=== PATIENT | male | born 1995 | race Caucasian/White ===

== ENCOUNTER 2020-11-25 23:54 | Emergency (ER) | payer OTHER, SELFPAY ==
--- NOTE | 2020-11-26 | ECG_ITS ---
Test Reason : EPIGASTRIC PN Blood Pressure : / mmHG Vent. Rate : 071 BPM Atrial Rate : 071 BPM P-R Int : 130 ms QRS Dur : 088 ms QT Int : 398 ms P-R-T Axes : 037 011 038 degrees QTc Int : 432 ms Normal sinus rhythm with sinus arrhythmia Normal ECG No previous ECGs available Referred By: Laurence Jiang Electronically Signed By:ALEKSANDR LINK
[2020-11-26 00:03] VITALS: BP 114/72; PULSE 69; RESP 16; TEMP 36.8; O2SAT 98; BMI 31.6
[2020-11-26 00:24] LABS: MANUAL DIFF FLAG NO
--- NOTE | 2020-11-26 00:24 | PC.NURSE ---
IV established, labs and UA obtained and sent. Pt resting in POC, awaiting primary MD carbajal.
[2020-11-26 00:30] LABS: Basophils Percent Auto 0.5 % (0-2); Eosinophils Absolute Auto 0.2 X10*3/uL (0.0-0.4); Eosinophils Percent Auto 2.7 % (0-4); Hematocrit 42.6 % (42-52); Hemoglobin 14.4 g/dl (14.0-18.0); Imm Gran Abs Auto 0.01 X10*3/uL (0.00-0.03); Imm Gran Pct Auto 0.1 % (0.0-0.4); Lymphocytes Absolute Auto 3.8 X10*3/uL (1.2-4.9); Mean Corpuscular HGB Conc 33.8 g/dl (31.0-36.0); Mean Corpuscular Hemoglobin 29.3 pg (27.0-33.0); Mean Corpuscular Volume 86.8 fL (80-98); Mean Platelet Volume 10.5 fL (9.4-12.4); Monocytes Absolute Auto 0.7 X10*3/uL (0.1-1.2); Monocytes Percent Auto 7.7 % (2-11); Neutrophils Absolute Auto 3.9 X10*3/uL (2.0-8.3); Platelet Count 245 X10*3/uL (160-400); Red Blood Count 4.91 X10*6/uL (4.60-5.80); Red Cell Distribution Width 13.1 % (11.0-16.0); White Blood Count 8.6 X10*3/uL (4.8-10.8)
[2020-11-26 00:31] LABS: Glucose Urine UA NEG (NEG); Leukocyte Esterase Urine NEG (NEG); Nitrite Urine NEG (NEG); Specific Gravity - Urine 1.015 (1.005-1.025); Urine Blood NEG (NEG); Urine Ketones NEG (NEG); Urine Protein TRACE MG/DL (NEG-TRACE)
[2020-11-26 00:32] LABS: Appearance Urine CLEAR; Color Urine YELLOW
--- NOTE | 2020-11-26 00:41 | PC.NURSE ---
at bedside for primary eval.
[2020-11-26 00:50] LABS: Alanine Aminotransferase 39 U/L (0-40); Albumin Level 4.4 g/dL (3.5-5.0); Alkaline Phosphatase 74 U/L (39-117); Anion Gap 11 (12-20); Aspartate Amino Transferase 30 U/L (5-37); Bilirubin Total 0.5 mg/dL (0.0-1.0); Blood Urea Nitrogen 14 mg/dL (9-16); Calcium 9.4 mg/dL (8.4-10.2); Carbon Dioxide 26 mmol/L (22-29); Chloride 108 mmol/L (96-108); Creatinine Clr Calc Pharmacy 139.3; Estimated Glomerular Filt Rate > 60; Glucose Random 98 mg/dL (60-115); Lipase 16 U/L (8-78); Potassium 4.1 mmol/L (3.3-5.1); Sodium 141 mmol/L (135-145); Total Protein 7.5 g/dL (6.5-8.0)
--- NOTE | 2020-11-26 00:50 | ED.ABDPAIN ---
HPI - Abdominal Pain General Chief Complaint: Abdominal Pain Stated Complaint: Abd pain Time Seen by Provider: 11/26/20 00:04 Source: patient Mode of arrival: ambulatory History of Present Illness HPI narrative: 25-year-old male presents with 1 week of noting that when he goes to bed at night after 2nd shift he experiences significant epigastric discomfort when lying flat on his back and only improves with sitting up. He states that at times he has to sleep sitting upright. This is not been associated with fever, chills, shortness of breath, nausea, vomiting, diarrhea. Patient is otherwise without significant past medical history. Related Data Previous Rx's Medication Instructions Recorded ibuprofen 600 mg tablet 600 mg PO Q8H 7 Days #21 tab 11/26/20 omeprazole 40 mg capsule,delayed 40 mg PO DAILY 30 Days #30 cap 11/26/20 release Allergies Allergy/AdvReac Type Severity Reaction Status Date / Time No Known Allergies Allergy Unverified 11/26/20 00:10 [No Known Allergies*] Review of Systems Review of Systems Pertinent positives and negatives as stated in HPI 10 point review of systems is otherwise negative. Physical Exam Vital Signs: Vital Signs: Last Vital Signs Temp 98.3 F 11/26/20 00:03 Pulse 59 11/26/20 03:27 Resp 14 11/26/20 03:27 BP 112/70 11/26/20 03:27 Pulse Ox 98 11/26/20 03:27 Body Mass Index 31.6 VITAL SIGNS: Reviewed. GENERAL: Well developed, well nourished, in no acute distress. HEAD: Normocephalic/atraumatic EYES: PERRLA, EOMI EARS: Ext canals without abnormality OROPHARYNX: no oral lesions noted, posterior pharynx clear LUNGS: Normal breath sounds. No adventitious sounds or accessory muscle use. SpO2<98> CARDIOVASCULAR: Regular rate and rhythm without noted murmurs, no JVD or lower extremity edema. ABDOMEN: Soft, non-tender, non-distended with bowel sounds. MUSCULOSKELETAL: No tenderness, deformities, or effusions noted on gross inspection. EXTREMITIES: No cyanosis, clubbing or edema. SKIN: Inspection of the skin reveals no rashes NEUROLOGIC: Alert and oriented x 4. Strength and sensation to light touch were grossly intact x 4. Course Course Course Narrative: 25-year-old male with history and clinical presentation suggestive of possible pericarditis. Review of all investigations without acute findings other than detectable levels of troponin, EKG within normal limits, and given patient's symptomology most consistent with mild pericarditis despite the absence of EKG findings. Patient was provided with a GI cocktail and on re-evaluation had good resolution of pain, however the positional change for acid reflux is inconsistent. Patient was provided with all results and findings and discharged home on a course of higher dose ibuprofen and received initial ibuprofen here in the emergency room. Discharge Plan Discharge Clinical Impression: Pericarditis Patient Disposition: Home, Self-Care Instructions: Acute Pericarditis (ED) Additional Instructions: 1. Follow-up with your primary care provider 1st thing on Saturday morning for re-evaluation and further outpatient follow-up. Return to the ER for acute worsening of your symptoms. Prescriptions: New omeprazole 40 mg capsule,delayed release(DR/EC) 40 mg PO DAILY 30 Days Qty: 30 RF: 0 ibuprofen 600 mg tablet 600 mg PO Q8H 7 Days Qty: 21 RF: 0 Referrals: Physician,Unknown [Primary Care Provider] - 2 days Interventions: ED Discharge Assessment Last Done: 11/26/20 04:03 Discharge Date/Time: 11/26/20 04:04 [facility] Past Medical History Source: nursing notes reviewed Medical History No known health problems Social History Social History Advance Directives: No Advance Directives Information Provided: No
[2020-11-26 00:52] LABS: Troponin-I High Sensitivity 7.5 ng/L (<3.5-35.0)
[2020-11-26] MEDS: Lidocaine HCl Viscous 2 % 15 ML SOLUTION 10 ML MUCOUS MEM (01:07)
[2020-11-26] MEDS: Magnesium Hydrox/Alum Hydrox 30 ML ORAL.SUSP PO (01:07)
--- NOTE | 2020-11-26 01:09 | PC.NURSE ---
Medicated per MAR.
[2020-11-26 01:35] LABS: C Reactive Protein 0.09 mg/dL (< or = 0.50)
[2020-11-26 01:44] VITALS: BP 107/64; PULSE 64; RESP 16; O2SAT 97
[2020-11-26 02:04] LABS: Erythrocyte Sedimentation Rate 2 MM/HR (0-15)
--- NOTE | 2020-11-26 02:14 | PC.NURSE ---
MD at bedside discussing results and plan for discharge.
--- NOTE | 2020-11-26 02:15 | PC.NURSE ---
at bedside for primary eval.
[2020-11-26 03:27] VITALS: BP 112/70; PULSE 59; RESP 14; O2SAT 98
[2020-11-26] MEDS: Ibuprofen 600 MG TABLET PO (03:27)
[2020-11-26 03:33] LABS: Troponin-I High Sensitivity 9.5 ng/L (<3.5-35.0)
--- NOTE | 2020-11-26 03:44 | PC.NURSE ---
at bedside for primary eval.
== END 2020-11-26 04:04 | disposition home or self-care (01) ==
PROVIDERS: Emergency Provider Student in an Organized Health Care Education/Training Program
DX: I31.9 Disease of pericardium, unspecified (principal); R10.13 Epigastric pain
CPT/HCPCS: 36415; 80053; 81003; 83690; 84484; 85025; 85652; 86140; 93005; 99284